=== PATIENT | male | born 1950 | race Caucasian/White ===

== ENCOUNTER 2019-01-10 18:49 | Emergency (ER) | payer OTHER, MEDICAID ==
[~2019-01-10] VITALS: Ht 172.7 cm; Wt 70.3 kg
[2019-01-10 18:59] VITALS: BP_SYST 85
--- NOTE | 2019-01-10 19:00 | NUR ---
Patient to ER bed 6 to gown for evaluation. Side rails up.
--- NOTE | 2019-01-10 19:05 | NUR ---
Pt was brought in BLS from [facility] facility for leaking indwelling burgos catheter. Currently in place is a 20F catheter. Pt denies fever, N/V. No other injuries/complaints per patient or noted.
--- NOTE | 2019-01-10 19:39 | NUR ---
Note undone in EDM - 01/10/19 at 2104 by [email or web address] # 18 FR Burgos catheter with use of sterile technique. Immediate return of 60 cc dark yellow urine noted. Bedside drainage bag placed below level of bladder. Urine sample collected and sent to lab. Pt tolerated procedure well. Patient arrived with burgos in place, changed due to leak of burgos.
--- NOTE | 2019-01-10 19:39 | NUR ---
# 18 FR Burgos catheter with use of sterile technique. Immediate return of 60 cc dark yellow urine noted. Bedside drainage bag placed below level of bladder. Pt tolerated procedure well. Patient arrived with burgos in place, changed due to leak of burgos.
--- NOTE | 2019-01-10 20:40 | NUR ---
Spoke with Kirstin from [facility] and gave report for transportation back to facility.
[2019-01-10 20:51] VITALS: BP_SYST 93
--- NOTE | 2019-01-10 20:51 | NUR ---
Sent with [facility] ambulance. VSS.
--- NOTE | 2019-01-10 20:51 | NUR ---
Patient given written and verbal discharge instructions and verbalizes understanding. ER MD discussed with patient the results and treatment provided. Patient in stable condition. ID arm band removed. Rx of Macrobid given. Patient educated on pain management and to follow up with PMD. Pain Scale 0. Opportunity for questions provided and answered. Medication side effect fact sheet provided.
== END 2019-01-10 20:51 | disposition home or self-care (01) ==
LOC: SED 18:49
DX: T83.031A Leakage of indwelling urethral catheter, initial encounter (principal)
CPT/HCPCS: 99284

== ENCOUNTER 2019-02-21 11:12 | Inpatient (IN) | payer OTHER, MEDICAID ==
[~2019-02-21] VITALS: Ht 180.3 cm; Wt 65.8 kg
[2019-02-21 14:37] VITALS: BP_SYST 118
[2019-02-21] MEDS ORDERED: LORA-258 PO (15:03)
[2019-02-21] MEDS ORDERED: MULT-1089 PO (15:03)
[2019-02-21] MEDS ORDERED: VITAMIN B1 PO (15:03)
[2019-02-21] MEDS ORDERED: FAMO20TA8 PO (15:03)
[2019-02-21] MEDS ORDERED: ASCO500T20 PO (15:03)
[2019-02-21] MEDS ORDERED: ACET-2165 PO (15:03)
[2019-02-21] MEDS ORDERED: TRAMADOL PO (15:03)
[2019-02-21] MEDS ORDERED: ASPI-1153 PO (15:03)
[2019-02-21] MEDS ORDERED: TAMS-11 PO (15:03)
[2019-02-21 15:14] VITALS: BP_SYST 118
[2019-02-21 15:28] LABS: BASOPHILS % (AUTO) 0.7 % (0.0-2.0); EOSINOPHILS # (AUTO) 0.2 K/uL (0.0-0.4); EOSINOPHILS % (AUTO) 2.6 % (0.0-4.0); HEMATOCRIT 41.9 % (36-54); HEMOGLOBIN 13.8 g/dL (14.0-18.0); LYMPHOCYTES # (AUTO) 2.1 K/uL (1.0-5.5); LYMPHOCYTES % (AUTO) 28.2 % (20.5-51.5); MEAN CORPUSCULAR HEMOGLOBIN 28 pg (27-31); MEAN CORPUSCULAR HGB CONC 33 % (32-36); MEAN CORPUSCULAR VOLUME 86 fL (79.0-98.0); MONOCYTES # (AUTO) 0.4 K/uL (0.0-1.0); MONOCYTES % (AUTO) 5.9 % (1.7-9.3); NEUTROPHILS # (AUTO) 4.6 K/uL (1.8-7.7); NEUTROPHILS % (AUTO) 62.6 % (40.0-70.0); PLATELET COUNT (AUTO) 270 K/uL (130-430); RED BLOOD CELL COUNT(AUTO) 4.89 MIL/uL (4.2-6.2); WHITE BLOOD COUNT (AUTO) 7.3 K/uL (4.8-10.8)
[2019-02-21 15:45] LABS: ALBUMIN 2.8 g/dL (3.4-4.8); CALCIUM 9.2 mg/dL (8.4-11.0); CREATININE 0.95 mg/dL (0.55-1.30); THYROID STIMULATING HORMONE 1.68 uIu/mL (0.36-3.74); TOTAL BILIRUBIN 0.3 mg/dL (0.0-1.0)
[2019-02-21] MEDS: D5/0.45 NS 1,000 ML IV SCH (16:01)
[2019-02-21] MEDS ORDERED: *LOVENOX 1MG/KG Q12H/PHARMACY XX ONE (16:45)
[2019-02-21] MEDS ORDERED: ENOXAPARIN SODIUM 80 MG/0.8 ML SYRINGE SUBCUT ONE (17:30)
[2019-02-21 20:00] VITALS: BP_SYST 105
[2019-02-21 22:32] LABS: BILIRUBIN,URINE NEGATIVE (NEGATIVE); BLOOD, URINE 3+ (NEGATIVE); CLARITY/URINE HAZY (CLEAR); COLOR,URINE ORANGE (YELLOW); GLUCOSE,URINE NEGATIVE (NEGATIVE); KETONES,URINE NEGATIVE (NEGATIVE); LEUKOCYTE ESTERASE ,URINE 3+ (NEGATIVE); NITRITE, URINE POSITIVE (NEGATIVE); PROTEIN URINE 2+ (NEGATIVE)
[2019-02-21 22:37] LABS: BACTERIA,URINE MANY /HPF (None Seen); MUCUS,URINE 2+ /LPF (None Seen); RBC,URINE >100 /HPF (0-3); WBC,URINE >100 /HPF (0-3)
[2019-02-22 01:45] VITALS: BP_SYST 107
[2019-02-22] MEDS: ENOXAPARIN SODIUM 80 MG/0.8 ML SYRINGE SUBCUT SCH ×2 (06:46→17:41)
[2019-02-22 08:00] VITALS: BP_SYST 98
[2019-02-22 08:06] LABS: FREE PSA 0.98 ng/mL; PROSTATE SPECIFIC AG TOTAL 3.5 ng/mL (0.0-4.0)
[2019-02-22] MEDS ORDERED: IOHEXOL 350 mgI/mL, 150 ML INFUS..BTL IV ONE (09:45)
[2019-02-22] MEDS: D5/0.45 NS 1,000 ML IV SCH (11:09)
[2019-02-22] MEDS: cefTRIAXone 1 GM in D5W 50 ML IV SCH (11:09)
[2019-02-22 12:12] VITALS: BP_SYST 97
[2019-02-22 16:23] VITALS: BP_SYST 98
[2019-02-22] MEDS ORDERED: ACETAMINOPHEN 325 MG TABLET PO PRN (17:30)
[2019-02-22] MEDS ORDERED: IPRATROPIUM/ALBUTEROL SULFATE 3 ML AMPUL.NEB (DUONEB) INH ONE (18:00)
[2019-02-22] MEDS ORDERED: traMADol HCL HCL 50 MG TABLET (ULTRAM) PO PRN (18:00)
[2019-02-22 20:00] VITALS: BP_SYST 105
[2019-02-22] MEDS: LORazepam 1 MG TABLET PO SCH (21:56)
[2019-02-22] MEDS: TAMSULOSIN HCL 0.4 MG CAP PO SCH (21:56)
[2019-02-22] MEDS: IPRATROPIUM/ALBUTEROL SULFATE 3 ML AMPUL.NEB (DUONEB) INH SCH (23:00)
[2019-02-23 00:53] VITALS: BP_SYST 98
[2019-02-23] MEDS: IPRATROPIUM/ALBUTEROL SULFATE 3 ML AMPUL.NEB (DUONEB) INH SCH ×3 (02:50→20:54)
[2019-02-23 04:15] VITALS: BP_SYST 105
[2019-02-23] MEDS: D5/0.45 NS 1,000 ML IV SCH (05:32)
[2019-02-23] MEDS: ENOXAPARIN SODIUM 80 MG/0.8 ML SYRINGE SUBCUT SCH (05:33)
[2019-02-23 06:52] LABS: BASOPHILS % (AUTO) 0.7 % (0.0-2.0); EOSINOPHILS # (AUTO) 0.2 K/uL (0.0-0.4); EOSINOPHILS % (AUTO) 3.1 % (0.0-4.0); HEMATOCRIT 37.7 % (36-54); HEMOGLOBIN 12.5 g/dL (14.0-18.0); LYMPHOCYTES # (AUTO) 2.2 K/uL (1.0-5.5); LYMPHOCYTES % (AUTO) 31.6 % (20.5-51.5); MEAN CORPUSCULAR HEMOGLOBIN 28 pg (27-31); MEAN CORPUSCULAR HGB CONC 33 % (32-36); MEAN CORPUSCULAR VOLUME 85 fL (79.0-98.0); MONOCYTES # (AUTO) 0.4 K/uL (0.0-1.0); MONOCYTES % (AUTO) 6.5 % (1.7-9.3); NEUTROPHILS % (AUTO) 58.1 % (40.0-70.0); PLATELET COUNT (AUTO) 250 K/uL (130-430); RED BLOOD CELL COUNT(AUTO) 4.45 MIL/uL (4.2-6.2); RED CELL DISTRIBUTION WIDTH 17.4 % (9.0-15.0); WHITE BLOOD COUNT (AUTO) 6.8 K/uL (4.8-10.8)
[2019-02-23 06:57] LABS: CALCIUM 8.9 mg/dL (8.4-11.0); CREATININE 0.97 mg/dL (0.55-1.30); POTASSIUM 3.7 mmol/L (3.5-5.1)
[2019-02-23] MEDS: THIAMINE HCL 100 MG TABLET PO SCH (08:49)
[2019-02-23] MEDS: TAMSULOSIN HCL 0.4 MG CAP PO SCH ×2 (08:49→21:07)
[2019-02-23] MEDS: FAMOTIDINE 20 MG TABLET PO SCH (08:49)
[2019-02-23] MEDS: ASPIRIN 81 MG TABLET(ECOTRIN) PO SCH (08:50)
[2019-02-23] MEDS: ASCORBIC ACID 500 MG TABLET PO SCH (08:50)
[2019-02-23] MEDS: MULTIVITAMINS TAB 1 TABLET PO SCH (08:50)
[2019-02-23] MEDS: cefTRIAXone 1 GM in D5W 50 ML IV SCH (08:51)
[2019-02-23 10:06] VITALS: BP_SYST 105
[2019-02-23 12:58] VITALS: BP_SYST 97
[2019-02-23 16:52] VITALS: BP_SYST 98
[2019-02-23 21:00] VITALS: BP_SYST 96
[2019-02-23] MEDS: APIXABAN 2.5 MG TABLET PO SCH (21:06)
[2019-02-23] MEDS: LORazepam 1 MG TABLET PO SCH (21:11)
[2019-02-23] MEDS: MUPIROCIN 2% TOPICAL OINTMENT 22 GM TP SCH (21:11)
[2019-02-24 00:47] VITALS: BP_SYST 119
[2019-02-24] MEDS: D5/0.45 NS 1,000 ML IV SCH (02:36)
[2019-02-24] MEDS: IPRATROPIUM/ALBUTEROL SULFATE 3 ML AMPUL.NEB (DUONEB) INH SCH ×3 (07:24→21:14)
[2019-02-24 08:00] VITALS: BP_SYST 95
[2019-02-24] MEDS: FAMOTIDINE 20 MG TABLET PO SCH (09:02)
[2019-02-24] MEDS: MULTIVITAMINS TAB 1 TABLET PO SCH (09:02)
[2019-02-24] MEDS: THIAMINE HCL 100 MG TABLET PO SCH (09:02)
[2019-02-24] MEDS: ASPIRIN 81 MG TABLET(ECOTRIN) PO SCH (09:02)
[2019-02-24] MEDS: ASCORBIC ACID 500 MG TABLET PO SCH (09:02)
[2019-02-24] MEDS: TAMSULOSIN HCL 0.4 MG CAP PO SCH (09:02)
[2019-02-24] MEDS: APIXABAN 2.5 MG TABLET PO SCH (09:03)
[2019-02-24] MEDS: cefTRIAXone 1 GM in D5W 50 ML IV SCH (09:05)
[2019-02-24] MEDS: MUPIROCIN 2% TOPICAL OINTMENT 22 GM TP SCH (12:40)
[2019-02-24 12:45] VITALS: BP_SYST 94
[2019-02-24 16:50] VITALS: BP_SYST 91
[2019-02-24 20:29] VITALS: BP_SYST 109
[2019-03-02] MEDS ORDERED: APIXABAN 2.5 MG TABLET PO ONE (21:00)
== END 2019-02-24 21:30 | DRG 871 ==
LOC: SMU 14:26 → STU 15:11
PROVIDERS: ADMIT Internal Medicine; ATTEND Internal Medicine
DX: A41.9 Sepsis, unspecified organism (principal); J96.01 Acute respiratory failure with hypoxia; N39.0 Urinary tract infection, site not specified; T83.091A Other mechanical complication of indwelling urethral catheter, initial encounter; N40.0 Benign prostatic hyperplasia without lower urinary tract symptoms; J44.9 Chronic obstructive pulmonary disease, unspecified; T83.031A Leakage of indwelling urethral catheter, initial encounter; Y73.8 Miscellaneous gastroenterology and urology devices associated with adverse incidents, not elsewhere classified; Z86.711 Personal history of pulmonary embolism; Z86.718 Personal history of other venous thrombosis and embolism; Z86.73 Personal history of transient ischemic attack (TIA), and cerebral infarction without residual deficits; Y92.89 Other specified places as the place of occurrence of the external cause; Z79.899 Other long term (current) drug therapy
CPT/HCPCS: 36415; 36600; 71045; 71275; 76770; 80048; 80053; 80061; 81000-TC; 82803-TC; 84153; 84443-TC; 85025; 87081; 87086; 87186-TC; 93306; 93970; 94640; 94760; G0378; J0696; J1650; J7060; J7620; Q9967

== ENCOUNTER 2019-04-06 15:24 | Inpatient (IN) | payer OTHER, MEDICAID ==
[~2019-04-06] VITALS: Ht 182.9 cm; Wt 64.0 kg
[~2019-04-06 15:24] MED LIST: ACET-2165 PO; ASCO500T20 PO; ASPI-1153 PO; FAMO20TA8 PO; LORA-258 PO; MULT-1089 PO; TAMS-11 PO; TRAMADOL PO; VITAMIN B1 PO
[2019-04-06 15:27] VITALS: BP_SYST 110
[2019-04-06 16:51] LABS: BILIRUBIN,URINE NEGATIVE (NEGATIVE); BLOOD, URINE 3+ (NEGATIVE); CLARITY/URINE CLOUDY (CLEAR); COLOR,URINE YELLOW (YELLOW); GLUCOSE,URINE NEGATIVE (NEGATIVE); KETONES,URINE NEGATIVE (NEGATIVE); LEUKOCYTE ESTERASE ,URINE 3+ (NEGATIVE); NITRITE, URINE POSITIVE (NEGATIVE); PROTEIN URINE 2+ (NEGATIVE); UROBILINOGEN,URINE 0.2 (0.2-1.0)
[2019-04-06 16:58] LABS: BASOPHILS # (AUTO) 0.1 K/uL (0.0-0.2); BASOPHILS % (AUTO) 0.6 % (0.0-2.0); EOSINOPHILS # (AUTO) 0.3 K/uL (0.0-0.4); EOSINOPHILS % (AUTO) 3.2 % (0.0-4.0); HEMOGLOBIN 14.4 g/dL (14.0-18.0); LYMPHOCYTES # (AUTO) 1.5 K/uL (1.0-5.5); LYMPHOCYTES % (AUTO) 17.4 % (20.5-51.5); MEAN CORPUSCULAR HEMOGLOBIN 29 pg (27-31); MEAN CORPUSCULAR HGB CONC 34 % (32-36); MEAN CORPUSCULAR VOLUME 87 fL (79.0-98.0); MONOCYTES # (AUTO) 0.5 K/uL (0.0-1.0); MONOCYTES % (AUTO) 5.8 % (1.7-9.3); NEUTROPHILS # (AUTO) 6.2 K/uL (1.8-7.7); PLATELET COUNT (AUTO) 339 K/uL (130-430); RED BLOOD CELL COUNT(AUTO) 4.95 MIL/uL (4.2-6.2); RED CELL DISTRIBUTION WIDTH 17.7 % (9.0-15.0); WHITE BLOOD COUNT (AUTO) 8.5 K/uL (4.8-10.8)
[2019-04-06 17:13] LABS: CALCIUM 8.8 mg/dL (8.4-11.0); CREATININE 0.84 mg/dL (0.55-1.30); POTASSIUM 3.9 mmol/L (3.5-5.1)
[2019-04-06 17:17] LABS: TOTAL BILIRUBIN 0.3 mg/dL (0.0-1.0)
[2019-04-06] MEDS ORDERED: TRAM-350 PO (17:19)
[2019-04-06] MEDS ORDERED: APIX5TAB PO (17:19)
[2019-04-06] MEDS ORDERED: ATRMDI INH (17:19)
[2019-04-06] MEDS ORDERED: AMI200 PO (17:19)
[2019-04-06 17:24] LABS: INR 1.2 (0.80-1.20); PROTHROMBIN TIME 11.6 SECS (9.5-12.5)
[2019-04-06] MEDS ORDERED: cefTRIAXone 1 GM IVPB PREMIX 50 ML IV ONE (17:30)
[2019-04-06 17:44] LABS: BACTERIA,URINE MANY /HPF (None Seen); RBC,URINE 50-80 /HPF (0-3); WBC,URINE >100 /HPF (0-3)
[2019-04-06 17:46] LABS: MUCUS,URINE None Seen /LPF (None Seen); URINE AMORPHOUS PHOSPHATES 2+ /HPF (None Seen)
[2019-04-06] MEDS ORDERED: KETOROLAC TROMETHAMINE 30 MG VIAL IVP ONE (18:15)
[2019-04-06] MEDS: 0.45% NACL 1,000 ML IV SCH (18:58)
[2019-04-06 19:09] LABS: CALCIUM OXALATE CRYSTALS,UR 0-10 /HPF (None Seen)
[2019-04-06 19:12] VITALS: BP_SYST 121
[2019-04-06 20:15] VITALS: BP_SYST 117
[2019-04-06] MEDS: PIPERACILLIN/TAZO 3.375/DEX-IS 50 ML IV SCH (21:52)
[2019-04-07 01:06] VITALS: BP_SYST 102
[2019-04-07] MEDS: PIPERACILLIN/TAZO 3.375/DEX-IS 50 ML IV SCH ×3 (06:52→21:49)
[2019-04-07 07:20] LABS: BASOPHILS # (AUTO) 0.1 K/uL (0.0-0.2); BASOPHILS % (AUTO) 0.8 % (0.0-2.0); EOSINOPHILS # (AUTO) 0.4 K/uL (0.0-0.4); EOSINOPHILS % (AUTO) 4.2 % (0.0-4.0); HEMATOCRIT 38.7 % (36-54); HEMOGLOBIN 13.1 g/dL (14.0-18.0); LYMPHOCYTES # (AUTO) 1.2 K/uL (1.0-5.5); LYMPHOCYTES % (AUTO) 13.1 % (20.5-51.5); MEAN CORPUSCULAR HEMOGLOBIN 29 pg (27-31); MEAN CORPUSCULAR HGB CONC 34 % (32-36); MEAN CORPUSCULAR VOLUME 86 fL (79.0-98.0); MONOCYTES # (AUTO) 0.5 K/uL (0.0-1.0); MONOCYTES % (AUTO) 5.3 % (1.7-9.3); NEUTROPHILS # (AUTO) 7.2 K/uL (1.8-7.7); NEUTROPHILS % (AUTO) 76.6 % (40.0-70.0); PLATELET COUNT (AUTO) 302 K/uL (130-430); WHITE BLOOD COUNT (AUTO) 9.4 K/uL (4.8-10.8)
[2019-04-07 07:39] LABS: CALCIUM 8.9 mg/dL (8.4-11.0); CREATININE 1.05 mg/dL (0.55-1.30)
[2019-04-07] MEDS: VANCOMYCIN HCL 1,000 MG in NS 250 ML IV SCH (10:00)
[2019-04-07 11:23] VITALS: BP_SYST 131
[2019-04-07] MEDS: 0.45% NACL 1,000 ML IV SCH ×2 (11:40→21:57)
[2019-04-07 16:11] VITALS: BP_SYST 100; BP_SYST 90
[2019-04-07] MEDS ORDERED: IPRATROPIUM BROMIDE 17 mCg/ACTUATION, 12.9 GM AER.W.ADAP INH PRN (20:15)
[2019-04-07] MEDS ORDERED: IPRATROPIUM BROM 0.5 MG/2.5 ML VIAL.NEB (ATROVENT) INH PRN (20:30)
[2019-04-07 21:00] VITALS: BP_SYST 94
[2019-04-07] MEDS ORDERED: MULTIVITAMINS TAB 1 TABLET PO SCH (21:00)
[2019-04-07] MEDS ORDERED: THIAMINE HCL 100 MG TABLET GT SCH (21:00)
[2019-04-07] MEDS ORDERED: ASCORBIC ACID 500 MG TABLET PO SCH (21:00)
[2019-04-07] MEDS ORDERED: ASPIRIN 81 MG TABLET(ECOTRIN) PO SCH (21:00)
[2019-04-07] MEDS ORDERED: FAMOTIDINE 20 MG TABLET PO SCH (21:00)
[2019-04-07] MEDS ORDERED: AMIODARONE HCL 200 MG TABLET PO SCH (21:00)
[2019-04-07] MEDS: TAMSULOSIN HCL 0.4 MG CAP PO SCH (22:18)
[2019-04-07] MEDS: LORazepam 1 MG TABLET PO SCH (22:20)
[2019-04-07] MEDS: ACETAMINOPHEN 325 MG TABLET PO PRN (22:22)
[2019-04-07 23:30] VITALS: BP_SYST 77
[2019-04-08] VITALS (12 sets, daily range): BP systolic 73–115
[2019-04-08] MEDS ORDERED: NACL 0.9% 1,000 ML IV ONE (00:15)
[2019-04-08] MEDS ORDERED: NACL 0.9% 1,000 ML IV SCH (04:00)
[2019-04-08 04:07] LABS: BASOPHILS % (AUTO) 0.4 % (0.0-2.0); EOSINOPHILS # (AUTO) 0.3 K/uL (0.0-0.4); EOSINOPHILS % (AUTO) 3.3 % (0.0-4.0); HEMOGLOBIN 12.2 g/dL (14.0-18.0); LYMPHOCYTES # (AUTO) 0.8 K/uL (1.0-5.5); LYMPHOCYTES % (AUTO) 8.5 % (20.5-51.5); MEAN CORPUSCULAR HEMOGLOBIN 29 pg (27-31); MEAN CORPUSCULAR HGB CONC 33 % (32-36); MEAN CORPUSCULAR VOLUME 87 fL (79.0-98.0); MONOCYTES # (AUTO) 0.4 K/uL (0.0-1.0); MONOCYTES % (AUTO) 4.5 % (1.7-9.3); NEUTROPHILS # (AUTO) 7.4 K/uL (1.8-7.7); NEUTROPHILS % (AUTO) 83.3 % (40.0-70.0); PLATELET COUNT (AUTO) 246 K/uL (130-430); RED BLOOD CELL COUNT(AUTO) 4.26 MIL/uL (4.2-6.2); RED CELL DISTRIBUTION WIDTH 17.6 % (9.0-15.0); WHITE BLOOD COUNT (AUTO) 8.9 K/uL (4.8-10.8)
[2019-04-08 04:20] LABS: CREATININE 1.41 mg/dL (0.55-1.30); POTASSIUM 3.9 mmol/L (3.5-5.1)
[2019-04-08] MEDS ORDERED: MEROPENEM 500 MG VIAL IV ONE (04:30)
[2019-04-08] MEDS: NACL 0.9% 1,000 ML IV SCH ×3 (04:32→20:56)
[2019-04-08] MEDS: MEROPENEM 1 GM IVPB PREMIX 50 ML IV SCH ×3 (04:33→20:57)
[2019-04-08] MEDS: AMIODARONE HCL 200 MG TABLET PO SCH (09:00)
[2019-04-08] MEDS: VANCOMYCIN HCL 1,000 MG in NS 250 ML IV SCH (09:29)
[2019-04-08] MEDS: ASPIRIN 81 MG TABLET(ECOTRIN) PO SCH (09:29)
[2019-04-08] MEDS: TAMSULOSIN HCL 0.4 MG CAP PO SCH ×2 (09:29→20:56)
[2019-04-08] MEDS: THIAMINE HCL 100 MG TABLET GT SCH (09:29)
[2019-04-08] MEDS: ASCORBIC ACID 500 MG TABLET PO SCH (09:31)
[2019-04-08] MEDS: FAMOTIDINE 20 MG TABLET PO SCH (09:31)
[2019-04-08] MEDS: MULTIVITAMINS TAB 1 TABLET PO SCH (09:31)
[2019-04-08] MEDS: LORazepam 1 MG TABLET PO SCH (20:52)
[2019-04-08] MEDS: MUPIROCIN 2% TOPICAL OINTMENT 22 GM NS SCH (20:57)
[2019-04-08] MEDS ORDERED: MUPIROCIN 2% TOPICAL OINTMENT 22 GM TP SCH (21:00)
[2019-04-09] VITALS (7 sets, daily range): BP systolic 99–116
[2019-04-09] MEDS: NACL 0.9% 1,000 ML IV SCH ×4 (03:34→21:28)
[2019-04-09] MEDS: MEROPENEM 1 GM IVPB PREMIX 50 ML IV SCH ×3 (05:31→21:30)
[2019-04-09 06:46] LABS: BASOPHILS % (AUTO) 0.5 % (0.0-2.0); EOSINOPHILS # (AUTO) 0.6 K/uL (0.0-0.4); EOSINOPHILS % (AUTO) 8.1 % (0.0-4.0); HEMATOCRIT 37.1 % (36-54); HEMOGLOBIN 12.4 g/dL (14.0-18.0); LYMPHOCYTES # (AUTO) 0.8 K/uL (1.0-5.5); LYMPHOCYTES % (AUTO) 10.5 % (20.5-51.5); MEAN CORPUSCULAR HEMOGLOBIN 29 pg (27-31); MEAN CORPUSCULAR HGB CONC 33 % (32-36); MEAN CORPUSCULAR VOLUME 87 fL (79.0-98.0); MONOCYTES # (AUTO) 0.3 K/uL (0.0-1.0); MONOCYTES % (AUTO) 4.3 % (1.7-9.3); NEUTROPHILS # (AUTO) 5.9 K/uL (1.8-7.7); NEUTROPHILS % (AUTO) 76.6 % (40.0-70.0); PLATELET COUNT (AUTO) 215 K/uL (130-430); RED BLOOD CELL COUNT(AUTO) 4.26 MIL/uL (4.2-6.2); RED CELL DISTRIBUTION WIDTH 17.3 % (9.0-15.0); WHITE BLOOD COUNT (AUTO) 7.7 K/uL (4.8-10.8)
[2019-04-09 06:55] LABS: ALBUMIN 2.2 g/dL (3.4-4.8); CALCIUM 8.4 mg/dL (8.4-11.0); CREATININE 1.02 mg/dL (0.55-1.30); POTASSIUM 3.7 mmol/L (3.5-5.1); TOTAL BILIRUBIN 0.4 mg/dL (0.0-1.0)
[2019-04-09] MEDS: MULTIVITAMINS TAB 1 TABLET PO SCH (08:52)
[2019-04-09] MEDS: THIAMINE HCL 100 MG TABLET GT SCH (08:52)
[2019-04-09] MEDS: FAMOTIDINE 20 MG TABLET PO SCH (08:52)
[2019-04-09] MEDS: TAMSULOSIN HCL 0.4 MG CAP PO SCH ×2 (08:52→21:29)
[2019-04-09] MEDS: ASCORBIC ACID 500 MG TABLET PO SCH (08:52)
[2019-04-09] MEDS: ASPIRIN 81 MG TABLET(ECOTRIN) PO SCH (08:52)
[2019-04-09] MEDS: MUPIROCIN 2% TOPICAL OINTMENT 22 GM NS SCH ×2 (08:54→21:28)
[2019-04-09] MEDS: VANCOMYCIN HCL 1,000 MG in NS 250 ML IV SCH (08:56)
[2019-04-09] MEDS: AMIODARONE HCL 200 MG TABLET PO SCH (09:00)
[2019-04-09] MEDS: ACETAMINOPHEN 325 MG TABLET PO PRN (17:11)
[2019-04-09] MEDS ORDERED: HYDROcodone/ACETAMIN 5-325 MG TAB (NORCO/ VICODIN) PO PRN (18:30)
[2019-04-09] MEDS: HYDROcodone/ACETAMIN 5-325 MG TAB (NORCO/ VICODIN) PO PRN (18:53)
[2019-04-09] MEDS: LORazepam 1 MG TABLET PO SCH (21:29)
[2019-04-10] VITALS (8 sets, daily range): BP systolic 98–123
[2019-04-10] MEDS: HYDROcodone/ACETAMIN 5-325 MG TAB (NORCO/ VICODIN) PO PRN ×3 (03:29→16:50)
[2019-04-10] MEDS: NACL 0.9% 1,000 ML IV SCH ×4 (05:04→22:10)
[2019-04-10] MEDS: MEROPENEM 1 GM IVPB PREMIX 50 ML IV SCH ×3 (06:05→23:24)
[2019-04-10 06:18] LABS: BASOPHILS % (AUTO) 0.3 % (0.0-2.0); EOSINOPHILS # (AUTO) 0.7 K/uL (0.0-0.4); EOSINOPHILS % (AUTO) 8.4 % (0.0-4.0); HEMATOCRIT 35.6 % (36-54); HEMOGLOBIN 11.7 g/dL (14.0-18.0); LYMPHOCYTES # (AUTO) 0.9 K/uL (1.0-5.5); LYMPHOCYTES % (AUTO) 10.1 % (20.5-51.5); MEAN CORPUSCULAR HEMOGLOBIN 29 pg (27-31); MEAN CORPUSCULAR HGB CONC 33 % (32-36); MEAN CORPUSCULAR VOLUME 87 fL (79.0-98.0); MONOCYTES # (AUTO) 0.4 K/uL (0.0-1.0); MONOCYTES % (AUTO) 5.1 % (1.7-9.3); NEUTROPHILS # (AUTO) 6.7 K/uL (1.8-7.7); NEUTROPHILS % (AUTO) 76.1 % (40.0-70.0); PLATELET COUNT (AUTO) 208 K/uL (130-430); RED CELL DISTRIBUTION WIDTH 17.7 % (9.0-15.0); WHITE BLOOD COUNT (AUTO) 8.8 K/uL (4.8-10.8)
[2019-04-10 06:55] LABS: CALCIUM 8.2 mg/dL (8.4-11.0); CREATININE 0.81 mg/dL (0.55-1.30); POTASSIUM 3.6 mmol/L (3.5-5.1); TOTAL BILIRUBIN 0.3 mg/dL (0.0-1.0)
[2019-04-10] MEDS: TAMSULOSIN HCL 0.4 MG CAP PO SCH ×2 (08:29→20:52)
[2019-04-10] MEDS: MULTIVITAMINS TAB 1 TABLET PO SCH (08:29)
[2019-04-10] MEDS: ASCORBIC ACID 500 MG TABLET PO SCH (08:29)
[2019-04-10] MEDS: VANCOMYCIN HCL 1,000 MG in NS 250 ML IV SCH (08:29)
[2019-04-10] MEDS: THIAMINE HCL 100 MG TABLET GT SCH (08:29)
[2019-04-10] MEDS: FAMOTIDINE 20 MG TABLET PO SCH (08:29)
[2019-04-10] MEDS: ASPIRIN 81 MG TABLET(ECOTRIN) PO SCH (08:29)
[2019-04-10] MEDS: AMIODARONE HCL 200 MG TABLET PO SCH (08:29)
[2019-04-10] MEDS: MUPIROCIN 2% TOPICAL OINTMENT 22 GM NS SCH ×2 (08:30→20:52)
[2019-04-10] MEDS: LORazepam 1 MG TABLET PO SCH (20:52)
[2019-04-11 00:30] VITALS: BP_SYST 108
[2019-04-11] MEDS: NACL 0.9% 1,000 ML IV SCH ×3 (04:51→18:42)
[2019-04-11] MEDS: MEROPENEM 1 GM IVPB PREMIX 50 ML IV SCH ×3 (05:01→22:34)
[2019-04-11 08:00] VITALS: BP_SYST 90
[2019-04-11] MEDS: MUPIROCIN 2% TOPICAL OINTMENT 22 GM NS SCH ×2 (08:55→21:00)
[2019-04-11] MEDS: VANCOMYCIN HCL 1,000 MG in NS 250 ML IV SCH (08:55)
[2019-04-11] MEDS: AMIODARONE HCL 200 MG TABLET PO SCH (09:00)
[2019-04-11] MEDS: FAMOTIDINE 20 MG TABLET PO SCH (09:58)
[2019-04-11] MEDS: THIAMINE HCL 100 MG TABLET GT SCH (09:58)
[2019-04-11] MEDS: ASPIRIN 81 MG TABLET(ECOTRIN) PO SCH (09:58)
[2019-04-11] MEDS: MULTIVITAMINS TAB 1 TABLET PO SCH (09:58)
[2019-04-11] MEDS: TAMSULOSIN HCL 0.4 MG CAP PO SCH ×2 (09:58→22:30)
[2019-04-11] MEDS: ASCORBIC ACID 500 MG TABLET PO SCH (09:58)
[2019-04-11 12:40] VITALS: BP_SYST 96
[2019-04-11 16:15] VITALS: BP_SYST 115
[2019-04-11] MEDS: ACETAMINOPHEN 325 MG TABLET PO PRN (16:44)
[2019-04-11 22:08] VITALS: BP_SYST 101
[2019-04-11] MEDS: LORazepam 1 MG TABLET PO SCH (22:30)
[2019-04-12] VITALS: BP_SYST 101
[2019-04-12] MEDS: NACL 0.9% 1,000 ML IV SCH ×2 (01:00→06:19)
[2019-04-12] MEDS: MEROPENEM 1 GM IVPB PREMIX 50 ML IV SCH ×2 (06:18→14:15)
[2019-04-12 08:01] VITALS: BP_SYST 104
[2019-04-12] MEDS: MUPIROCIN 2% TOPICAL OINTMENT 22 GM NS SCH (08:45)
[2019-04-12] MEDS: TAMSULOSIN HCL 0.4 MG CAP PO SCH (08:45)
[2019-04-12] MEDS: MULTIVITAMINS TAB 1 TABLET PO SCH (08:45)
[2019-04-12] MEDS: VANCOMYCIN HCL 1,000 MG in NS 250 ML IV SCH (08:45)
[2019-04-12] MEDS: ASCORBIC ACID 500 MG TABLET PO SCH (08:46)
[2019-04-12] MEDS: FAMOTIDINE 20 MG TABLET PO SCH (08:46)
[2019-04-12] MEDS: AMIODARONE HCL 200 MG TABLET PO SCH (08:46)
[2019-04-12] MEDS: ASPIRIN 81 MG TABLET(ECOTRIN) PO SCH (08:46)
[2019-04-12] MEDS: THIAMINE HCL 100 MG TABLET GT SCH (08:47)
[2019-04-12 12:00] VITALS: BP_SYST 93
[2019-04-12 12:06] VITALS: BP_SYST 104
== END 2019-04-12 16:32 | DRG 871 ==
LOC: SED 15:24 → SMU 17:43 → STU 04-08 05:36
PROVIDERS: ADMIT Internal Medicine; ATTEND Internal Medicine
DX: A41.9 Sepsis, unspecified organism (principal); R65.21 Severe sepsis with septic shock; J18.9 Pneumonia, unspecified organism; N17.9 Acute kidney failure, unspecified; I69.354 Hemiplegia and hemiparesis following cerebral infarction affecting left non-dominant side; N12 Tubulo-interstitial nephritis, not specified as acute or chronic; J44.0 Chronic obstructive pulmonary disease with (acute) lower respiratory infection; T83.091A Other mechanical complication of indwelling urethral catheter, initial encounter; I10 Essential (primary) hypertension; N40.0 Benign prostatic hyperplasia without lower urinary tract symptoms; Y73.8 Miscellaneous gastroenterology and urology devices associated with adverse incidents, not elsewhere classified; R13.10 Dysphagia, unspecified; K21.9 Gastro-esophageal reflux disease without esophagitis; N13.9 Obstructive and reflux uropathy, unspecified; T83.018A Breakdown (mechanical) of other urinary catheter, initial encounter; N20.0 Calculus of kidney; I95.9 Hypotension, unspecified; B96.4 Proteus (mirabilis) (morganii) as the cause of diseases classified elsewhere; Z86.711 Personal history of pulmonary embolism; Z79.899 Other long term (current) drug therapy
CPT/HCPCS: 36415; 71045; 80048; 80053; 80202-TC; 81000-TC; 83605; 84484; 85025; 85610-TC; 85730-TC; 87040-TC; 87081; 87086; 87186-TC; 93005; 96374; 99285; G0378; J0696; J1885; J2185; J2543; J3370; J7030; J7050